=== PATIENT | male | born 1960 | race Hispanic/Latino ===

== ENCOUNTER 2017-10-02 07:31 | Emergency (ER) | payer OTHER, SELFPAY ==
[2017-10-02 07:54] LABS: #Basophils 0.1 thou/uL (0.0-0.2); #Eosinphils 0.1 thou/uL (0.0-0.7); #Lymphocytes 1.8 thou/uL (1.20-3.40); #Monocytes 0.7 thou/uL (0.11-0.59); #Neutrophils 3.7 thou/uL (1.40-6.50); %Basophils 1.5 % (0.0-1.0); %Eosinophils 1.6 % (0.0-10.0); %Lymphocytes 28.7 % (21.0-51.0); %Monocytes 11.1 % (0.0-10.0); Hematocrit 45.2 % (42.0-52.0); Mean Platelet Volume 8.5 fL (7.4-10.4); Red Blood Cell (RBC) Count 4.52 mill/uL (4.70-6.10); White Blood Cell (WBC) Count 6.4 thou/uL (4.8-10.8)
[2017-10-02] MEDS ORDERED: Meclizine HCl 25 MG TAB ONE (07:56)
[2017-10-02 08:16] LABS: ALT (SGPT) 35 U/L (8-55); AST (SGOT) 28 U/L (5-34); Alkaline Phosphatase 113 U/L (40-150); Anion Gap 16 mmol/L (10-20); BUN (Urea Nitrogen) 17 mg/dL (8.4-25.7); Bilirubin, Total 0.9 mg/dL (0.2-1.2); Calc. Creatinine Clearance 0 mL/min (70-130); Calcium 9.2 mg/dL (7.8-10.44); Carbon Dioxide 20 mmol/L (22-29); Chloride 105 mmol/L (98-107); Estimated GFR-MDRD Greater than 90; Globulin 3.4 g/dL (2.4-3.5); Protein, Total 7.5 g/dL (6.0-8.3)
[2017-10-02 08:21] LABS: Troponin I Less than 0.010 ng/mL (< 0.028)
--- NOTE | 2017-10-02 08:30 | CT ---
CT BRAIN: History: Dizziness. Date: 10-02-17 Technique: Noncontrast CT images obtained from the base of the skull through the vertex. Brain and rene ne windows are obtained. FINDINGS: Noncontrast enhanced CT images of the brain demonstrate the brain to be unremarkable. No evidence of intracranial masses, hemorrhages, strokes or contusions seen. Ventricles are of normal size. IMPRESSION: Normal CT brain. POS: [facility]
[2017-10-02 09:14] LABS: Bilirubin Negative (Negative); Blood, Urine Negative (Negative); Glucose, Urine (Dipstick) Negative (Negative); Ketone, Urine Negative (Negative); Nitrite Negative (Negative); Protein, Urine (Dipstick) Negative (Neg-Trace); Urobilinogen 0.2 mg/dL (0.2-1.0)
== END 2017-10-02 11:04 | disposition home or self-care (01) ==
LOC: ERS 07:31
DX: R42 Dizziness and giddiness (principal); E78.5 Hyperlipidemia, unspecified; F41.9 Anxiety disorder, unspecified; F32.9 Major depressive disorder, single episode, unspecified; F17.210 Nicotine dependence, cigarettes, uncomplicated
CPT/HCPCS: 36415; 70450; 80053; 81003; 82553; 84484; 85025; 93005; 96360